=== PATIENT | female | born 1955 | race Caucasian/White ===

== ENCOUNTER → 2017-08-14 | Outpatient (CLI) | payer OTHER | END | disposition home or self-care (01) | LOC: CFH 08-13 15:35 | PROVIDERS: ATTEND Family Medicine | DX: S83.282A Other tear of lateral meniscus, current injury, left knee, initial encounter (principal); M67.462 Ganglion, left knee; X58.XXXA Exposure to other specified factors, initial encounter; Y93.89 Activity, other specified; Y92.89 Other specified places as the place of occurrence of the external cause; Y99.8 Other external cause status ==

== ENCOUNTER → 2019-09-30 | Outpatient (CLI) | payer OTHER | END | disposition home or self-care (01) | LOC: CFH 11:15 | PROVIDERS: ATTEND Family Medicine | DX: M85.89 Other specified disorders of bone density and structure, multiple sites (principal); N95.9 Unspecified menopausal and perimenopausal disorder | CPT/HCPCS: 77080 ==